=== PATIENT | female | born 1935 | race Caucasian/White ===

== ENCOUNTER 2016-08-18 18:38 | Emergency (ER) | payer MEDICARE, SELFPAY ==
[~2016-08-18 18:38] MED LIST: 8 HOUR650 MG PO; ADVAIR INH; ALBUTEROL0.083 % INH; AMB10 PO; ASA5GR PO; ASAB; ASAB PO; BEN25 PO; BRILINTA90 MG PO; CELEXA20 PO; COREG3 PO; CRESTOR40 MG PO; DIOVAN HCT PO; GOODY'S BODY P1 EACH PO; GOODY'S EX-STR1 EAC1 PO; LEXAPRO10 PO; LIPITOR10 PO; LIPITOR40 PO; MEG40 PO; MEGACEUDL PO; MELATONIN5 M1 PO; P5 PO; PEP20 PO; PRAVACHOL40 MG PO; PRILO PO; PROAIR HFA INH; PROVENTSOL INH; QVAR80 MCG INH; SPIRIVA INH; TOPXL50 PO; VITC500 PO
[2016-12-12] MEDS ORDERED: LIPITOR20 PO (12:47)
[2016-12-12] MEDS ORDERED: ASAB PO (12:47)
[2016-12-12] MEDS ORDERED: PLAVIX PO (12:49)
[2016-12-12] MEDS ORDERED: BUM1 PO (12:49)
[2016-12-12] MEDS ORDERED: SACU1TAB PO (12:50)
[2016-12-12] MEDS ORDERED: LOVENOX40 SC (12:50)
[2016-12-12] MEDS ORDERED: DSS PO (12:50)
[2016-12-12] MEDS ORDERED: BACTROINT TOP (12:52)
[2016-12-12] MEDS ORDERED: HABIT14 TOP (12:54)
[2016-12-12] MEDS ORDERED: MIRALAX POWDER1 PKT PO (12:55)
[2016-12-12] MEDS ORDERED: SPIRO25 PO (12:56)
[2016-12-12] MEDS ORDERED: SENTAB PO (12:56)
[2016-12-12] MEDS ORDERED: X25 PO (12:58)
[2016-12-12] MEDS ORDERED: MAALOX MAX PO (12:59)
[2016-12-12] MEDS ORDERED: CONSTULOSE PO (13:01)
[2016-12-12] MEDS ORDERED: [UNRECOGNIZED DRUG - OTHER] PO (13:01)
[2016-12-12] MEDS ORDERED: ZOFRAN ODT4 MG PO (13:03)
[2016-12-12] MEDS ORDERED: ZOFRAN4 PO (13:03)
[2016-12-12] MEDS ORDERED: BROVANA15 MCG INH (13:04)
[2016-12-12] MEDS ORDERED: PULRESP.5 INH (13:05)
[2016-12-12] MEDS ORDERED: ALBUTEROL0.083 % INH (13:05)
== END 2016-08-18 21:54 | disposition home or self-care (01) ==
LOC: ER 18:38
DX: S00.03XA Contusion of scalp, initial encounter (principal); J44.9 Chronic obstructive pulmonary disease, unspecified; Z87.891 Personal history of nicotine dependence; I10 Essential (primary) hypertension; Z95.810 Presence of automatic (implantable) cardiac defibrillator; K21.9 Gastro-esophageal reflux disease without esophagitis; F32.9 Major depressive disorder, single episode, unspecified; Z88.2 Allergy status to sulfonamides; Z88.8 Allergy status to other drugs, medicaments and biological substances; Z79.899 Other long term (current) drug therapy; W19.XXXA Unspecified fall, initial encounter
CPT/HCPCS: 70450; 99284